=== PATIENT | male | born 2005 | race Two or more races ===

== ENCOUNTER 2023-07-11 08:19 | Emergency (ER) | payer OTHER ==
[~2023-07-11] VITALS: Ht 182.9 cm; Wt 94.5 kg
[2023-07-11 09:05] VITALS: BP 128/88; PULSE 83; RESP 20; TEMP 97.2; O2SAT 99
[2023-07-11] MEDS ORDERED: ONDANSETRON HCL 4 MG/2 ML VIAL IV ONE (09:15)
[2023-07-11] MEDS ORDERED: KETOROLAC TROMETH 30 MG/ML 1ML VIAL IV ONE (09:15)
[2023-07-11] MEDS ORDERED: FAMOTIDINE (10MG/ML) 2ML VL IV ONE (09:15)
[2023-07-11] MEDS ORDERED: SODIUM CHLORIDE 0.9% 1,000 ML IV ONE (09:15)
[2023-07-11] MEDS ORDERED: diphenhdrAMINE HCL 50 MG/1 ML VL IV ONE (09:30)
[2023-07-11 09:34] LABS: Basophils # (auto) 0.1 10 ^3/uL (0-0.2); Basophils % (auto) 0.7 % (0.0-2.0); Eosinophils # (auto) 0 10 ^3/uL (0-0.8); Eosinophils % (auto) 0.5 % (0.0-7.0); Hematocrit 45.1 % (41.0-53.0); Lymphocytes # (auto) 1.5 10 ^3/uL (0.4-5.4); Lymphocytes % (auto) 18.4 % (10.0-50.0); Mean Corpuscular Hemoglobin 32.5 pg (28.0-32.0); Mean Corpuscular Hgb Conc. 35.5 g/dL (32.0-36.0); Mean Corpuscular Volume 91.8 fL (80.0-100.0); Monocytes # (auto) 0.4 10 ^3/uL (0-1.3); Monocytes % (auto) 4.7 % (0.0-12.0); Neutrophils # (auto) 6.1 10 ^3/uL (1.6-8.6); Neutrophils % (auto) 75.7 % (37.0-80.0); Nucleated Red Blood Cells % 0.2 %; Red Blood Cells 4.92 10^6/uL (4.5-5.90); Red Cell Distribution Width 12.5 % (11.8-14.3); White Blood Cell 8.1 10^3/uL (4.4-10.8)
[2023-07-11 09:56] LABS: Albumin 4.4 g/dL (3.4-5.0); Anion Gap 9 (5-15); Blood Urea Nitrogen 11 mg/dL (7-18); Carbon Dioxide 24 mmol/L (21-32); Chloride 107 mmol/L (98-107); Glucose 148 mg/dL (74-106); Lipase 81 U/L (73-393); Sodium 140 mmol/L (136-145)
[2023-07-11] MEDS ORDERED: METOCLOPRAMIDE HCL 5MG/ml INJ 2ml VIAL IV ONE (10:00)
[2023-07-11 10:01] LABS: Alanine Aminotransferase 22 U/L (16-61); Alkaline Phosphatase 59 U/L (45-117); Aspartate Aminotransferase 12 U/L (15-37); BUN/Creatinine Ratio 11.2 (10.0-20.0); Bilirubin, Total 1.3 mg/dL (0.2-1.0); Blood Alcohol < 3.0 mg/dL (<10); GFR African American 125 mL/min; GFR Non-African American 104 mL/min; Total Protein 7.5 g/dL (6.4-8.2)
[2023-07-11 10:02] LABS: Alcohol, Urine < 3.0 mg/dL (0-10); Amphetamine Screen, Urine NEGATIVE (NEGATIVE); Barbiturate Scree,Urine NEGATIVE (NEGATIVE); Benzodiazephine Screen, Urine NEGATIVE (NEGATIVE); Cannabinoid Screen, Urine POSITIVE (NEGATIVE); Cocaine Screen, Urine NEGATIVE (NEGATIVE)
[2023-07-11 10:08] LABS: Potassium 2.8 mmol/L (3.5-5.1)
[2023-07-11 10:09] LABS: Opiate Scree,Urine NEGATIVE (NEGATIVE); Phencyclidine Screen, Urine NEGATIVE (NEGATIVE)
[2023-07-11 10:15] LABS: Urine Bacteria NONE SEEN /hpf (None Seen); Urine Blood Negative /uL (Negative); Urine Clarity Clear (Clear); Urine Color Yellow (Yellow); Urine Hyaline Cast FEW /lpf (0 - 2); Urine Mucus FEW (None Seen); Urine Protein, UAD 1+ (Negative); Urine Specific Gravity 1.028 (1.001-1.035); Urine Urobilinogen Normal (Negative); Urine WBC 7 /hpf (0 - 3); Urine pH 6.5 (5.0-8.0)
[2023-07-11] MEDS ORDERED: POTASSIUM EFFERVESENT TAB 25 MEQ PO ONE (10:15)
[2023-07-11] MEDS ORDERED: POTA10TA51 PO (10:34)
[2023-07-11] MEDS ORDERED: METO-281 PO (10:34)
== END 2023-07-11 10:39 | disposition home or self-care (01) ==
LOC: ER 08:19
DX: R11.15 Cyclical vomiting syndrome unrelated to migraine (principal); E87.6 Hypokalemia; F12.10 Cannabis abuse, uncomplicated; Z79.899 Other long term (current) drug therapy
CPT/HCPCS: 36415; 80053; 80307; 80320; 81001; 83690; 85025; 96361; 96374; 96375; 99284; J1200; J1885; J2405; J2765; J3490; J7030

== ENCOUNTER 2024-05-01 13:34 | Emergency (ER) | payer MEDICAID ==
[~2024-05-01] VITALS: Ht 185.4 cm; Wt 98.2 kg
[~2024-05-01 13:34] MED LIST: METO-281 PO; POTA-36 PO
[2024-05-01 14:24] LABS: Basophils # (auto) 0 10 ^3/uL (0-0.2); Basophils % (auto) 0.4 % (0.0-2.0); Eosinophils # (auto) 0 10 ^3/uL (0-0.8); Eosinophils % (auto) 0.4 % (0.0-7.0); Hemoglobin 17.3 g/dL (13.5-17.5); Lymphocytes # (auto) 2.8 10 ^3/uL (0.4-5.4); Lymphocytes % (auto) 33.5 % (10.0-50.0); Mean Corpuscular Hgb Conc. 35.3 g/dL (32.0-36.0); Mean Corpuscular Volume 93.6 fL (80.0-100.0); Monocytes # (auto) 0.7 10 ^3/uL (0-1.3); Monocytes % (auto) 8.4 % (0.0-12.0); Neutrophils # (auto) 4.8 10 ^3/uL (1.6-8.6); Neutrophils % (auto) 57.3 % (37.0-80.0); Nucleated Red Blood Cells % 0.2 %; Red Blood Cells 5.24 10^6/uL (4.5-5.90); Red Cell Distribution Width 12.1 % (11.8-14.3); White Blood Cell 8.3 10^3/uL (4.4-10.8)
[2024-05-01] MEDS ORDERED: PANT40TA2 PO (14:35)
[2024-05-01] MEDS ORDERED: ZOFR4T PO (14:35)
[2024-05-01 14:44] LABS: Alanine Aminotransferase 16 U/L (7-40); Albumin 5.2 g/dL (3.2-4.8); Alkaline Phosphatase 73 U/L (46-116); Anion Gap 9 (5-15); Aspartate Aminotransferase 12 U/L (13-40); BUN/Creatinine Ratio 8.3 (10.0-20.0); Blood Urea Nitrogen 7 mg/dL (9-23); Calcium 10.3 mg/dL (8.5-10.1); Carbon Dioxide 26 mmol/L (20-30); Chloride 105 mmol/L (98-107); Glucose 133 mg/dL (74-106); Potassium 2.9 mmol/L (3.5-5.1); Sodium 140 mmol/L (136-145)
[2024-05-01 14:45] LABS: Bilirubin, Total 1.8 mg/dL (0.2-1.0)
[2024-05-01 15:14] LABS: Lipase 31 U/L (12-53)
[2024-05-01 16:38] VITALS: BP 145/78; PULSE 78; RESP 18; O2SAT 100
[2024-05-01] MEDS: SODIUM CHLORIDE 0.9% 1,000 ML IV ONE (17:36)
[2024-05-01] MEDS: PROCHLORPERAZINE EDISYLATE 5 MG/ML 2ML VIAL IV ONE (17:43)
[2024-05-01] MEDS: PANTOPRAZOLE 40 MG/10 ML VIAL INJ IV ONE (17:43)
== END 2024-05-01 18:31 | disposition home or self-care (01) ==
LOC: EDBD 13:34 → ER 13:34
DX: R11.2 Nausea with vomiting, unspecified (principal); F12.10 Cannabis abuse, uncomplicated; Z79.899 Other long term (current) drug therapy
CPT/HCPCS: 36415; 80053; 83690; 85025; 96374; 96375; 99284; C9113; J0780; J7030